=== PATIENT | male | born 1950 | race Caucasian/White ===

== ENCOUNTER 2020-05-12 22:28 | Emergency (ER) | payer MEDICARE, BC ==
--- NOTE | 2020-05-12 23:12 | EDM.PDOC ---
ED HPI GENERAL MEDICAL PROBLEM - General Stated Complaint: DIZZY, RIGHT SIDE FEELING NUMB, Time Seen by Provider: 05/12/20 23:08 Source of Information: Reports: Patient History Limitations: Reports: No Limitations - History of Present Illness INITIAL COMMENTS - FREE TEXT/NARRATIVE: pt states was holding his 45lb dog which was lying on him then he moved the dog off and suddenly right side gave out feeling had no strength at all. this happened at 9:30pm. not getting better. pt arrived in wheelchair and got up himself and removed his jacket by self but states can talk and move but right side feels weaker but not so weak that he cannot remove his jacket. - Related Data Allergies Allergy/AdvReac Type Severity Reaction Status Date / Time No Known Allergies Allergy Verified 05/12/20 23:33 Home Meds: Home Meds . [No Known Home Meds] 05/12/20 [History] ED ROS GENERAL - Review of Systems Review Of Systems: Comprehensive ROS is negative, except as noted in HPI. ED EXAM, NEURO - Physical Exam Exam: See Below Exam Limited By: No Limitations General Appearance: Alert, WD/WN, Mild Distress, Other (upset) Eye Exam: Bilateral Eye: PERRL (pupils ER @ 4mm) Ears: Hearing Grossly Normal Throat/Mouth: Normal Voice, No Airway Compromise Head Exam: Atraumatic Neck: Non-Tender, Full Range of Motion Respiratory/Chest: No Respiratory Distress Cardiovascular: Regular Rate, Rhythm GI/Abdominal: Soft, Non-Tender (Male) Exam: Deferred Rectal (Males) Exam: Deferred Neurological: Alert, Normal Gait, No Motor/Sensory Deficits, Oriented x 3, Straight Leg Raise (L), Straight Leg Raise (R), Other (right side arm-leg weaker) Back Exam: Full Range of Motion Extremities: Normal Range of Motion Psychiatric: Flat Affect Skin Exam: Warm, Dry, Normal Color Course - Vital Signs Last Recorded V/S: Last Vital Signs Temp 36.5 C 05/12/20 23:00 Pulse 43 L 05/12/20 23:55 Resp 15 05/12/20 23:55 BP 190/74 H 05/12/20 23:55 Pulse Ox 95 05/12/20 23:55 - Orders/Labs/Meds Orders: Active Orders 24 hr Category Date Time Status EKG Documentation Completion [RC] STAT Care 05/12/20 23:05 Active Labs: Laboratory Tests 05/12/20 05/12/20 05/12/20 Range/Units 23:07 23:07 23:07 WBC 6.1 (5.0-10.0) 10^3/uL RBC 4.99 (4.6-6.2) 10^6/uL Hgb 15.3 (14.0-18.0) g/dL Hct 45.2 (40.0-54.0) % MCV 90.6 (80-100) fL MCH 30.7 (27.0-34.0) pg MCHC 33.8 (33.0-35.0) g/dL Plt Count 211 (150-450) 10^3/uL Neut % (Auto) 55.8 (42.2-75.2) % Lymph % (Auto) 29.0 (20.5-50.1) % Butts % (Auto) 11.9 H (2-8) % Eos % (Auto) 2.3 (1.0-3.0) % Baso % (Auto) 1.0 (0.0-1.0) % PT 9.9 (9.0-12.0) SEC INR 1.0 (0.9-1.2) APTT 25.5 (22.0-34.0) SEC Sodium 141 (136-145) mmol/L Potassium 3.8 (3.5-5.1) mmol/L Chloride 103 (98-107) mmol/L Carbon Dioxide 27 (21-32) mmol/L Anion Gap 14.8 H (7-13) mEq/L BUN 20 H (7-18) mg/dL Creatinine 0.95 (0.70-1.30) mg/dL Est Cr Clr Drug Dosing 80.36 mL/min Estimated GFR (MDRD) > 60 BUN/Creatinine Ratio 21.1 (No establ ref range) Glucose 140 H (74-99) mg/dL Calcium 9.4 (8.5-10.1) mg/dL Total Bilirubin 0.4 (0.2-1.0) mg/dL AST 17 (15-37) U/L ALT 25 (16-63) U/L Alkaline Phosphatase 64 (46-116) U/L Troponin I < 0.017 (0.000-0.056) ng/mL Total Protein 7.1 (6.4-8.2) g/dL Albumin 3.9 (3.4-5.0) g/dL Globulin 3.2 Albumin/Globulin Ratio 1.2 - Re-Assessments/Exams Free Text/Narrative Re-Assessment/Exam: 05/12/20 23:39 results discussed with pt who states his HR was in the 40s when he was being evaluated for knee surgery and was sent to cardio @ and had echo done. was told right side strong and nothing said about left side. right now his strength is better but not 100%. 05/13/20 00:[address] Robledo @ [facility] who kindly accepted pt. Departure - Departure Time of Disposition: 00:13 Disposition: DC/Tfer to Acute Hospital 02 Condition: Good Clinical Impression: Bradycardia CVA (cerebral vascular accident) Qualifiers: CVA mechanism: unspecified Qualified Code(s): I63.9 - Cerebral infarction, unspecified Hemiparesis Qualifiers: Hemiparesis etiology: unspecified Hemiparesis laterality: right dominant side Qualified Code(s): G81.91 - Hemiplegia, unspecified affecting right dominant side - Discharge Information Forms: Interfacility Transfer [facility] Sepsis Event Note (ED) - Focused Exam Vital Signs: Vital Signs Temp Pulse Resp BP Pulse Ox 05/12/20 23:55 43 L 15 190/74 H 95 05/12/20 23:00 36.5 C 48 L 16 195/90 H 92 L - My Orders Last 24 Hours: My Active Orders 05/12/20 23:05 EKG Documentation Completion [RC] STAT - Assessment/Plan Last 24 Hours: My Active Orders 05/12/20 23:05 EKG Documentation Completion [RC] STAT
--- NOTE | 2020-05-12 23:29 | CT ---
PROCEDURE INFORMATION: Exam: CT Head Without Contrast Exam date and time: 05/12/2020 11:19 PM Age: 69 years old Clinical indication: Other: Right sided weakness; Additional info: Sudden right side weakness possible stroke TECHNIQUE: Imaging protocol: Computed tomography of the head without contrast. Radiation optimization: All CT scans at this facility use at least one of these dose optimization techniques: automated exposure control; mA and/or kV adjustment per patient size (includes targeted exams where dose is matched to clinical indication); or iterative reconstruction. Other technique: STROKE PROTOCOL was implemented. COMPARISON: No relevant prior studies available. FINDINGS: Brain: Transcortical low attenuation involving the left occipital region which may be related to an acute infarct versus artifact. There is no hemorrhage. Cerebral ventricles: No ventriculomegaly. Bones/joints: Unremarkable. No acute fracture. Paranasal sinuses: Visualized sinuses are unremarkable. No fluid levels. Mastoid air cells: Visualized mastoid air cells are well aerated. Soft tissues: Unremarkable. IMPRESSION: Area of transcortical low attenuation involving the left occipital lobe best seen on series 2 images 13 through 17 suggestive of an acute infarct versus artifact.. MRI of the brain is suggested. ASSESSMENT: ASPECTS (Sandra Stroke Program Early CT Score) is 9.
[2020-05-12 23:39] LABS: PTT,PARTIAL THROMBOPLSTIN TIME 25.5 SEC (22.0-34.0)
[2020-05-12 23:43] LABS: ANION GAP 14.8 mEq/L (7-13); CHLORIDE,CL 103 mmol/L (98-107); SODIUM,NA 141 mmol/L (136-145)
== END 2020-05-13 00:28 ==
LOC: DL.ED 22:28
DX: I63.9 Cerebral infarction, unspecified (principal); G81.91 Hemiplegia, unspecified affecting right dominant side; R00.1 Bradycardia, unspecified; Z20.828 Contact with and (suspected) exposure to other viral communicable diseases
CPT/HCPCS: 36415; 70450; 80053; 82962; 84484; 85025; 85610; 85730; 93005; 99283; 99285; U0002

== ENCOUNTER 2023-12-30 11:23 | Emergency (ER) | payer MEDICARE, BC ==
[2023-12-30 11:42] LABS: BASOPHILS PERCENT AUTO 0.3 % (0.0-1.0); HEMATOCRIT 47.4 % (40.0-54.0); HEMOGLOBIN 15.3 g/dL (14.0-18.0); LYMPHOCYTES PERCENT AUTO 15.1 % (20.5-50.1); MEAN CORPUSCULAR HEMOGLOBIN 31.3 pg (27.0-34.0); MEAN CORPUSCULAR HGB CONC 32.3 g/dL (33.0-35.0); MEAN CORPUSCULAR VOLUME 96.9 fL (80-100); MONOCYTES PERCENT AUTO 7.6 % (2-8); PLATELET COUNT,PLT 202 10^3/uL (150-450); RED BLOOD CELL COUNT 4.89 10^6/uL (4.6-6.2); WHITE BLOOD CELL COUNT,WBC 7.1 10^3/uL (5.0-10.0)
[2023-12-30 12:00] LABS: LACTATE DEHYDROGENASE,LDH 214 U/L (85-227)
[2023-12-30 12:03] LABS: A/G RATIO 1.2; ALANINE AMINOTRANSFERASE,ALT 21 U/L (16-63); ALBUMIN 3.7 g/dL (3.4-5.0); ALKALINE PHOSPHATASE 67 U/L (46-116); ANION GAP 7.2 mEq/L (7-13); ASPARTATE AMNIOTRANSFERASE,AST 15 U/L (15-37); BILIRUBIN TOTAL 0.7 mg/dL (0.2-1.0); BLOOD UREA NITROGEN,BUN 14 mg/dL (7-18); BUN/CREATININE RATIO 13.1 (No establ ref range); C-REACTIVE PROTEIN < 0.50 ng/dL (<=0.50); CALCIUM 8.8 mg/dL (8.5-10.1); CARBON DIOXIDE,CO2 32 mmol/L (21-32); CHLORIDE,CL 106 mmol/L (98-107); CREATININE 1.07 mg/dL (0.70-1.30); ESTIMATED GFR 74 mL/min (>=60); GLUCOSE RANDOM 126 mg/dL (70-99); MAGNESIUM 2.1 mg/dL (1.8-2.4); POTASSIUM,K 4.2 mmol/L (3.5-5.1); PROTEIN TOTAL,TP 6.9 g/dL (6.4-8.2); SODIUM,NA 141 mmol/L (136-145); TSH ULTRASENSITIVE 4.05 uIU/mL (0.36-3.74)
[2023-12-30] MEDS: Iopamidol 755 Mg/ML 100 ML Bottle IVPUSH ONE (12:34)
[2023-12-30] MEDS: hydrALAZINE 20 MG/ML SDV IVPUSH ONE (14:50)
[2023-12-30] MEDS: NIFEdipine 30 MG Tab.ER PO ONE (15:09)
[2023-12-30] MEDS: Sodium Chloride 0.9% 10 ML Syringe FLUSH PRN (15:09)
== END 2023-12-30 16:36 ==
LOC: DL.ED 11:23 → MERGE 11:23 → DL.ED 16:36
DX: R00.1 Bradycardia, unspecified (principal); I10 Essential (primary) hypertension
CPT/HCPCS: 36415; 70450; 70496; 70498; 80053; 83615; 83735; 84443; 84484; 85025; 85610; 86140; 93005; 99285; A9270; Q9967; 93010; J3490

== ENCOUNTER 2024-01-11 20:57 | Emergency (ER) | payer MEDICARE, BC ==
[2024-01-11] MEDS: Acetaminophen 500 MG Tab PO ONE (22:37)
[2024-01-11] MEDS: Docusate Sodium 100 MG Cap PO ONE (22:58)
== END 2024-01-11 23:18 | disposition home or self-care (01) ==
LOC: DL.ED 20:57
DX: G89.18 Other acute postprocedural pain (principal); R07.9 Chest pain, unspecified; K59.00 Constipation, unspecified; F41.9 Anxiety disorder, unspecified; Z95.0 Presence of cardiac pacemaker
CPT/HCPCS: 71046; 93005; 93010; 99284; A9270-GY